=== PATIENT | female | born 1970 | race Caucasian/White ===

== ENCOUNTER → 2016-11-25 | Outpatient (CLI) | payer MEDICARE, OTHER ==
[~2016-11-25] MED LIST: ANTIVERT 25MG T25 MG PO; BUSPIRONE HCL10 MG PO; CLOBETASOL EMU100 GM TP; CRESTOR20 MG PO; DULERA 100 MCG8.8 GM INH; FLONASE 0.05% N16 GM; OMEPRAZOLE40 MG PO; PROVENTIL HFA 61 INH INH; PROZAC20 MG PO; SEROQUEL100 MG PO; SINGULAIR10 MG PO; SYNTHROID75 MCG PO; TESSALON PERLE100 MG PO; ZETIA10 MG PO; ZYPREXA15 MG PO; ZYRTEC10 MG PO; [UNRECOGNIZED DRUG - OTHER] TP
== END ==
LOC: RAD 11:55
DX: M13.871 Other specified arthritis, right ankle and foot (principal)
CPT/HCPCS: 73610; 73630

== ENCOUNTER → 2017-06-11 | Day surgery (SDC) | payer MEDICARE, OTHER ==
[~2017-06-11] VITALS: Ht 149.9 cm; Wt 73.9 kg
== END | disposition home or self-care (01) ==
LOC: OR 07:55
PROVIDERS: Internal Medicine Gastroenterology
PROC: 0DBL8ZX Excision of Transverse Colon, Via Natural or Artificial Opening Endoscopic, Diagnostic (ICD-10-PCS; 2017-06-11)
PROC: 0DBB8ZX Excision of Ileum, Via Natural or Artificial Opening Endoscopic, Diagnostic (ICD-10-PCS; 2017-06-11)
PROC: 0DBM8ZX Excision of Descending Colon, Via Natural or Artificial Opening Endoscopic, Diagnostic (ICD-10-PCS; 2017-06-11)
PROC: 0DBH8ZX Excision of Cecum, Via Natural or Artificial Opening Endoscopic, Diagnostic (ICD-10-PCS; 2017-06-11)
PROC: 0DBK8ZX Excision of Ascending Colon, Via Natural or Artificial Opening Endoscopic, Diagnostic (ICD-10-PCS; principal; 2017-06-11 11:15)
DX: R10.31 Right lower quadrant pain (principal); G89.29 Other chronic pain; K64.0 First degree hemorrhoids; E78.00 Pure hypercholesterolemia, unspecified; E66.9 Obesity, unspecified; Z88.2 Allergy status to sulfonamides; Z79.899 Other long term (current) drug therapy; Z68.31 Body mass index [BMI] 31.0-31.9, adult
CPT/HCPCS: J2001; J7030

== ENCOUNTER 2020-09-28 10:27 | Emergency (ER) | payer MEDICARE, OTHER ==
[~2020-09-28 10:27] MED LIST changes: +DOXYCYCLINE HY100 MG PO; +KEFLEX CAP 500500 MG PO; +MILK OF MAGNESI30 ML PO; +PYRIDIUM200 MG PO; +ZOFRAN ODT 4 MG4 MG PO
[2020-09-28 12:15] LABS: HEMOGLOBIN 14.2 gm/dl (12.3-15.3); RED BLOOD COUNT 4.56 M/UL (4.00-5.10); WHITE BLOOD COUNT 11.6 K/UL (4.5-11.0)
[2020-09-28 12:39] LABS: BUN/CREATININE RATIO 23 (0-10)
[2020-09-28] MEDS ORDERED: VIBRAMYCIN100 MG PO (14:14)
[2020-09-28] MEDS ORDERED: TESSALON PERLE100 MG PO (14:14)
== END 2020-09-28 14:30 | disposition home or self-care (01) ==
LOC: ER1 10:27
PROVIDERS: Physician Assistant
DX: J18.9 Pneumonia, unspecified organism (principal); E07.89 Other specified disorders of thyroid; Z88.2 Allergy status to sulfonamides; Z79.899 Other long term (current) drug therapy; Z20.822 Contact with and (suspected) exposure to COVID-19
CPT/HCPCS: 71045; 80053; 85025; 85379; 99283; U0002

== ENCOUNTER → 2021-09-02 | Outpatient (CLI) | payer MEDICARE, OTHER ==
[~2021-09-02] MED LIST changes: +VIBRAMYCIN100 MG PO
== END ==
LOC: CT 07:40
DX: R10.33 Periumbilical pain (principal); R10.815 Periumbilic abdominal tenderness; K42.9 Umbilical hernia without obstruction or gangrene
CPT/HCPCS: 74150

== ENCOUNTER 2021-12-25 19:31 | Emergency (ER) | payer MEDICARE, OTHER ==
[2021-12-25 22:33] LABS: HEMOGLOBIN 12.5 gm/dl (12.3-15.3); RED BLOOD COUNT 4.15 M/UL (4.00-5.10); WHITE BLOOD COUNT 11.6 K/UL (4.5-11.0)
[2021-12-25 22:54] LABS: BUN/CREATININE RATIO 28 (0-10)
[2021-12-26] MEDS ORDERED: PROTONIX40 MG PO (00:19)
[2021-12-26] MEDS ORDERED: CHRONULAC20 GM/30 M PO (00:19)
[2021-12-26] MEDS ORDERED: MYCOSTATIN100000 UTS PO (00:26)
== END 2021-12-26 00:30 | disposition home or self-care (01) ==
LOC: ER1 19:31
PROVIDERS: Physician Assistant
DX: K59.00 Constipation, unspecified (principal); J45.909 Unspecified asthma, uncomplicated; Z88.2 Allergy status to sulfonamides
CPT/HCPCS: 71045; 80053; 81001; 83605; 83690; 84439; 84443; 85025; 87081; 87086; 87880; 93005; 96374; 96375; 99284; C9113; J2405; Q9967

== ENCOUNTER 2022-05-20 11:58 | Emergency (ER) | payer MEDICARE, OTHER ==
[~2022-05-20 11:58] MED LIST changes: +CHRONULAC20 GM/30 M PO; +MYCOSTATIN100000 UTS PO; +PROTONIX40 MG PO
[2022-05-20 13:03] LABS: HEMOGLOBIN 12.7 gm/dl (12.3-15.3); RED BLOOD COUNT 4.18 M/UL (4.00-5.10)
[2022-05-20 13:06] LABS: WHITE BLOOD COUNT 4.9 K/UL (4.5-11.0)
[2022-05-20 13:29] LABS: BUN/CREATININE RATIO 24 (0-10)
[2022-05-20] MEDS ORDERED: CEFUROXIME500 MG PO (17:48)
== END 2022-05-20 18:07 | disposition home or self-care (01) ==
LOC: ER1 11:58
PROVIDERS: Nurse Practitioner
DX: U07.1 COVID-19 (principal); J40 Bronchitis, not specified as acute or chronic; E87.1 Hypo-osmolality and hyponatremia; N39.0 Urinary tract infection, site not specified; R79.1 Abnormal coagulation profile; Z88.2 Allergy status to sulfonamides
CPT/HCPCS: 80053; 81001; 85025; 85379; 87086; 99284; Q9967